=== PATIENT | male | born 1940 | race Caucasian/White ===

== ENCOUNTER 2017-11-29 06:49 | Day surgery (SDC) | payer MEDICAID, OTHER ==
[~2017-11-29] VITALS: Ht 162.6 cm; Wt 86.8 kg
[~2017-11-29 06:49] MED LIST: ACET-66 PO; ALLO300 PO; AMLO-512 PO; ASPI81 PO; ATOR40TA28 PO; COLC0.6T67 PO; COMB5OS OS; FINA5TAB41 PO; FLUT16H NASAL; LISI-661 PO; LORA10TA7 PO; METO-558 PO; SILD25 PO; TAMS0.4C32 PO; VITAD1000 PO; XALA2.5OS OU
[2017-11-29] MEDS ORDERED: TETRACAINE HCL/PF 0.5% 4 ML OPHTHALMIC SOLUTION OD ONE (06:50)
[2017-11-29] MEDS ORDERED: EPINEPHrine 1:1,000 [1 MG/ML] AMP IM ONE (06:50)
[2017-11-29] MEDS ORDERED: LIDOCAINE HCL/PF 1% 2 ML VIAL IM ONE (06:50)
[2017-11-29] MEDS ORDERED: POVIDONE-IODINE 10% 15 ML SOLUTION UD TP ONE (06:50)
[2017-11-29] MEDS ORDERED: HYALURONATE SOD/CHONDROITIN SOD 0.5 ML VIAL IO ONE (06:50)
[2017-11-29] MEDS ORDERED: HYALURONATE SODIUM 12 MG/ML 0.8 ML SYRINGE IO ONE (06:50)
[2017-11-29] MEDS ORDERED: RINGERS SOLUTION,LACTATED 500 ML IV ONE ×3 (07:00→08:15)
[2017-11-29] MEDS ORDERED: SODIUM CHLORIDE 0.9% 500 ML IV ONE (07:00)
[2017-11-29] MEDS ORDERED: MOXIFLOXACIN HCL 0.5% 3 ML OPHTHALMIC SOLUTION OD ONE (07:30)
[2017-11-29] MEDS ORDERED: TROPICAMIDE 1% 2 ML OPHTHALMIC SOLUTION ONE (07:36)
[2017-11-29] MEDS ORDERED: MOXIFLOXACIN HCL 0.5% 3 ML OPHTHALMIC SOLUTION ONE (07:36)
[2017-11-29] MEDS ORDERED: PHENYLEPHRINE HCL 2.5% 2 ML OPHTHALMIC SOLUTION ONE (07:36)
[2017-11-29 08:02] LABS: GLUCOMETER DEV NAME(LOC) SDS 5; GLUCOSE,POINT OF CARE 138 MG/DL (70-110)
[2017-11-29] MEDS: TROPICAMIDE 1% 2 ML OPHTHALMIC SOLUTION OD SCH ×2 (08:17→08:24)
[2017-11-29] MEDS: PHENYLEPHRINE HCL 2.5% 2 ML OPHTHALMIC SOLUTION OD SCH ×2 (08:18→08:24)
[2017-11-29] MEDS ORDERED: BALANCED SALT 15 ML OPHTHALMIC IRRIG.SOLN ONE (09:35)
[2017-11-29] MEDS ORDERED: LIDOCAINE HCL/PF 1% 2 ML VIAL ONE (09:35)
[2017-11-29] MEDS ORDERED: EPINEPHrine 1:1,000 [1 MG/ML] AMP ONE (09:35)
[2017-11-29] MEDS ORDERED: RINGERS SOLUTION,LACTATED 1,000 ML IV ONE (09:38)
[2017-11-29] MEDS ORDERED: FentaNYL CITRATE-PF 100 MCG/2 ML VIAL IVP ONE (12:00)
[2017-11-29] MEDS ORDERED: MIDAZOLAM HCL 2 MG/2 ML VIAL IVP ONE (12:00)
== END 2017-11-29 11:05 | disposition home or self-care (01) ==
LOC: SURGERY 06:49
PROVIDERS: ATTEND Ophthalmology
DX: E11.36 Type 2 diabetes mellitus with diabetic cataract (principal); H25.11 Age-related nuclear cataract, right eye; E11.22 Type 2 diabetes mellitus with diabetic chronic kidney disease; I13.0 Hypertensive heart and chronic kidney disease with heart failure and stage 1 through stage 4 chronic kidney disease, or unspecified chronic kidney disease; N18.3 Chronic kidney disease, stage 3 (moderate); I50.9 Heart failure, unspecified; E78.5 Hyperlipidemia, unspecified; I25.10 Atherosclerotic heart disease of native coronary artery without angina pectoris; I25.2 Old myocardial infarction; N40.0 Benign prostatic hyperplasia without lower urinary tract symptoms; E66.9 Obesity, unspecified; F41.9 Anxiety disorder, unspecified; F32.9 Major depressive disorder, single episode, unspecified; M19.90 Unspecified osteoarthritis, unspecified site; F10.21 Alcohol dependence, in remission; Z87.11 Personal history of peptic ulcer disease; Z95.1 Presence of aortocoronary bypass graft; Z79.82 Long term (current) use of aspirin; Z88.6 Allergy status to analgesic agent; Z87.891 Personal history of nicotine dependence; Z90.89 Acquired absence of other organs; Z68.32 Body mass index [BMI] 32.0-32.9, adult; Z79.899 Other long term (current) drug therapy; Z98.890 Other specified postprocedural states
CPT/HCPCS: 66984; 82962; 93005; C1780; J0171; J2250; J3010; J3490 ×2; J7120 ×2